=== PATIENT | male | born 1940 | race Caucasian/White ===

== ENCOUNTER 2016-04-11 16:06 | Inpatient (IN) | payer MEDICARE, OTHER ==
[2016-04-11] VITALS (11 sets, daily range): BP systolic 143–182; BP diastolic 59–88; PULSE 62–74; RESP 19–23; Ht 157.5 cm; Wt 63.2 kg
[~2016-04-11] VITALS: Ht 157.5 cm; Wt 63.2 kg
[2016-04-11] MEDS ORDERED: HEPARIN 1000 UNITS/ML 10 ML INJ IV STA (16:19)
[2016-04-11] MEDS ORDERED: ASPIRIN 325 MG TAB PO STA (16:19)
[2016-04-11] MEDS ORDERED: HEPARIN 25000 UNITS/250 ML 250 ML IV STA (16:19)
[2016-04-11] MEDS ORDERED: ONDANSETRON 4 MG INJ IV STA (16:23)
--- NOTE | 2016-04-11 16:33 | RADRPT ---
PROCEDURE: XR Chest. CLINICAL INDICATION: Chest pain TECHNIQUE: Chest AP portable. COMPARISON: No comparison available. FINDINGS: The mediastinal structures are unremarkable. The heart is normal in size and configuration. The pu lmonary vascularity is normal. The lung banda are unremarkable. No consolidation is identified. The pleural spaces are unremarkable. The axial skeleton is unremarkable. IMPRESSION: No active intrathoracic disease. RPTAT: HGDB .Raji Clifton MD, MD Date Time Electronically viewed and signed by .Raji Clifton MD, on 04/11/2016 16:32 .B/
[2016-04-11 16:43] LABS: HEMATOCRIT 45.5 % (42.0-52.0); HEMOGLOBIN 15.2 g/dl (14.0-18.0); MEAN CORPUSCULAR HEMOGLOBIN 28.6 pg (29.0-33.0); MEAN CORPUSCULAR HGB CONC 33.4 g/dl (32.0-37.0); MEAN CORPUSCULAR VOLUME 85.7 fl (82.0-101.0); MEAN PLATELET VOLUME 9.6 fl (7.4-10.4); PLATELET COUNT 202 10^3/UL (140-440); RED BLOOD COUNT 5.31 10^6/ul (4.70-6.10); RED CELL DISTRIBUTION WIDTH 14.4 % (11.5-14.5); UNCORRECTED WBC 9.3 10^3/ul (4.8-10.8); WHITE BLOOD COUNT 9.3 10^3/ul (4.8-10.8)
[2016-04-11] MEDS ORDERED: IODIXANOL LOCM 50 ML BTL ONE (16:49)
[2016-04-11] MEDS ORDERED: HEPARIN 1000 UNITS/ML 10 ML INJ ONE (16:49)
[2016-04-11] MEDS ORDERED: IODIXANOL LOCM 100 ML BTL ONE (16:49)
[2016-04-11] MEDS ORDERED: VERAPAMIL 5 MG INJ ONE (16:49)
[2016-04-11] MEDS ORDERED: MIDAZOLAM 1 MG/ML 2 ML INJ ONE (16:49)
[2016-04-11] MEDS ORDERED: FENTAnyl 50 MCG/ML VIAL ONE (16:49)
[2016-04-11] MEDS ORDERED: NITROGLYCERIN (IC) 100 MCG/ML INJ ONE (16:50)
[2016-04-11 16:51] LABS: CHLORIDE 104 mmol/L (97-110); POTASSIUM 4.1 mmol/L (3.5-5.1); SODIUM 145 mmol/L (135-144)
[2016-04-11 16:53] LABS: CONDITION 1; INR 0.93; LH ANALYZER COMMENTS 1; PARTIAL THROMBOPLASTIN TIME 31.5 Sec (25.0-35.0); PROTIME 12.5 Sec (12.2-14.2)
[2016-04-11 16:54] LABS: CREATININE 0.89 mg/dl (0.61-1.24)
[2016-04-11 16:55] LABS: ANION GAP 18 (8-16); BLOOD UREA NITROGEN 15 mg/dl (7-20); CARBON DIOXIDE 27 mmol/L (21-31); GLUCOSE 139 mg/dl (70-220)
--- NOTE | 2016-04-11 16:58 | CONS ---
Date/Time of Note Date/Time of Note DATE: 04/11/16 TIME: 16:54 Assessment/Plan Assessment/Plan Chief Complaint/Hosp Course Anterior STEMI: EKG with anterolateral ST elevations and reciprocal ST depressions inferiorly. To cath for likely intervention. -emergent cath -given ASA 325mg, heparin bolus -will give remainder of meds in lab Problems: Consultation Date/Type/Reason Admit Date/Time Date of Consultation: Apr 11, 2016 Type of Consultation: Cardiology Reason for Consultation STEMI Referring Provider: PATRICK AGUILLON of Present Illness 75 yo M with no known past medical history who presented with chest pain x 1 hour and was found to have an anterior STEMI. The patient is agreeable to urgent cardiac cath for evaluation, treatment. Social History Smoking Status: Never smoker Exam/Review of Systems Vital Signs Vitals Vital Signs Date Time Temp Pulse Resp B/P Pulse Ox O2 Delivery O2 Flow Rate FiO2 04/11/16 16:23 Nasal Cannula 2 04/11/16 16:11 97.6 71 18 198/92 100 Exam Constitutional: alert, oriented Psych: no complaints Head: atraumatic, normocephalic Neck: No jvd Respiratory: clear to auscultation, No crackles/rales Cardiovascular: nl pulses, regular rate and rhythm, No edema Gastrointestinal: non-tender, soft Neurological: nl mental status, nl speech Results Result Diagram: 04/11/16 1625 Results 24 hrs Laboratory Tests Test 04/11/16 16:25 Activated Partial Thromboplast Time 31.5 Anion Gap Pending Basophils # Pending Basophils % Pending Blood Morphology Comment Blood Urea Nitrogen Pending Calcium Level Pending Carbon Dioxide Level Pending Chloride Level 104 Creatinine Pending Eosinophils # Pending Eosinophils % Pending Glucose Level Pending Hematocrit 45.5 Hemoglobin 15.2 INR International Normalized Ratio 0.93 Lymphocytes # Pending Lymphocytes % Pending Mean Corpuscular Hemoglobin 28.6 L Mean Corpuscular Hemoglobin Concent 33.4 Mean Corpuscular Volume 85.7 Mean Platelet Volume 9.6 Monocytes # Pending Monocytes % Pending Neutrophils # Pending Neutrophils % Pending Nucleated Red Blood Cells # Pending Nucleated Red Blood Cells % Pending Platelet Count 202 Potassium Level 4.1 Prothrombin Time 12.5 Prothrombin Time Ratio 1.0 Red Blood Count 5.31 Red Cell Distribution Width 14.4 Sodium Level 145 H Troponin I Pending White Blood Count 9.3 KOSHKARYAN,BRANDIE Apr 11, 2016 16:57
[2016-04-11] MEDS ORDERED: SOD CHLORIDE 0.9% 500 ML ONE (17:16)
[2016-04-11] MEDS ORDERED: CLOPIDOGREL 300 MG TAB ONE (17:17)
[2016-04-11 17:23] LABS: TROPONIN-I < 0.012 ng/ml (0.00-0.12)
[2016-04-11] MEDS ORDERED: BIVALIRUDIN 250MG /NS 50 ML 50 ML IVPB ONE ×2 (17:27→17:58)
[2016-04-11 17:41] LABS: EOSINOPHILS # 1.7 10^3/ul (0.0-0.5); LYMPHOCYTES # 2.1 10^3/ul (0.8-2.9); MONOCYTE # 0.3 10^3/ul (0.3-0.9); NEUTROPHIL # 4.8 10^3/ul (1.6-7.5)
[2016-04-11 17:42] LABS: HYPOCHROMASIA 1+; PLATELET ESTIMATE PLT APPEAR ADEQUATE
[2016-04-11] MEDS ORDERED: ONDANSETRON 4 MG INJ IV PRN (18:30)
[2016-04-11] MEDS ORDERED: ACETAMINOPHEN 325 MG TAB PO PRN (18:30)
[2016-04-11] MEDS ORDERED: morphine 2 MG INJ IV PRN (18:30)
--- NOTE | 2016-04-11 18:43 | ERA ---
ER Documentation Chief Complaint Date/Time DATE: 04/11/16 TIME: 18:29 Chief Complaint CHEST PAIN, ONSET TODAY HPI This 75-year-old male walked into the emergency room for bilateral substernal chest pain and been present for one hour. Abrasions this Is a pressure-like. He does not feel short of breath but does have nausea. He also feels very shaky. There is no radiation of the pain and nothing makes it better or worse. He does not see physicians and is not sure if he has high cholesterol hypertension, he is pretty sure that he does not have diabetes. His never had any heart attacks prior to this that he knows of. ROS All systems reviewed and are negative except as per history of present illness. Medications Home Meds No Active Prescriptions or Reported Meds Allergies Allergies: Coded Allergies: No Known Allergy (Unverified , 04/11/16) PMhx/Soc Medical and Surgical Hx: pt denies Medical Hx, pt denies Surgical Hx Hx Alcohol Use: No Hx Substance Use: No Hx Tobacco Use: No Smoking Status: Never smoker Physical Exam Vitals Vital Signs Date Time Temp Pulse Resp B/P Pulse Ox O2 Delivery O2 Flow Rate FiO2 04/11/16 16:23 Nasal Cannula 2 04/11/16 16:11 97.6 71 18 198/92 100 Physical Exam Const: [] Mild distress, mild tremors Head: Atraumatic Eyes: Normal Conjunctiva, EOMI, PERRLA ENT: Normal External Ears, Nose and Mouth. Neck: Full range of motion..~ No meningismus. Resp: Clear to auscultation bilaterally Cardio: Regular rate and rhythm, no murmurs Abd: Soft, non tender, non distended. Normal bowel sounds Skin: No petechiae or rashes Back: No midline or flank tenderness Ext: No cyanosis, or edema Neur: Awake and alert and oriented 3, no focal deficits Psych: Normal Mood and Affect Result Diagram: 04/11/16 1625 04/11/16 1625 Results 24 hrs Laboratory Tests Test 04/11/16 16:25 Activated Partial Thromboplast Time 31.5Sec Anion Gap 18 Basophils # 10^3/ul Basophils % % Blood Morphology Comment Blood Urea Nitrogen 15mg/dl Calcium Level 9.0mg/dl Carbon Dioxide Level 27mmol/L Chloride Level 104mmol/L Creatinine 0.89mg/dl Eosinophils # 1.710^3/ul Eosinophils % 18.0% Glucose Level 139mg/dl Hematocrit 45.5% Hemoglobin 15.2g/dl Hypochromasia 1+ INR International Normalized Ratio 0.93 Lymphocytes # 2.110^3/ul Lymphocytes % 23.0% Mean Corpuscular Hemoglobin 28.6pg Mean Corpuscular Hemoglobin Concent 33.4g/dl Mean Corpuscular Volume 85.7fl Mean Platelet Volume 9.6fl Monocytes # 0.310^3/ul Monocytes % 3.0% Neutrophils # 4.810^3/ul Neutrophils % 52.0% Nucleated Red Blood Cells # 10^3/ul Nucleated Red Blood Cells % 0.0/100WBC Platelet Count 28493^3/UL Platelet Estimate PLT APPEAR ADEQUATE Potassium Level 4.1mmol/L Prothrombin Time 12.5Sec Prothrombin Time Ratio 1.0 Red Blood Count 5.3110^6/ul Red Cell Distribution Width 14.4% Sodium Level 145mmol/L Troponin I < 0.012ng/ml White Blood Count 9.310^3/ul Current Medications Medications (Trade) Dose Ordered Sig/Katiana Route PRN Reason Start Time Stop Time Status Last Admin Dose Admin Aspirin (Aspirin) 325 mg ONCE STAT PO 04/11/16 16:19 04/11/16 16:21 DC 04/11/16 16:32 Heparin Sodium (Porcine) 4000 unit 4,000 unit ONCE STAT IV 04/11/16 16:19 04/11/16 16:21 DC 04/11/16 16:34 Heparin Sodium (Porcine) (Heparin 67871 Units/250 ml) 250 ml @ 0 mls/hr ONCE STAT IV 04/11/16 16:19 04/11/16 16:21 DC 04/11/16 16:35 Ondansetron HCl (Zofran Inj) 4 mg ONCE STAT IV 04/11/16 16:23 04/11/16 16:24 DC 04/11/16 16:32 Heparin Sodium (Porcine) (Heparin (1000 Units/ml)) 10,000 unit STK-MED ONCE .ROUTE 04/11/16 16:49 04/11/16 16:50 DC Iodixanol (Visipaque Locm) 50 ml STK-MED ONCE .ROUTE 04/11/16 16:49 04/11/16 16:50 DC Iodixanol 100 ml 100 ml STK-MED ONCE .ROUTE 04/11/16 16:49 04/11/16 16:50 DC Heparin Sodium/ Sodium Chloride (Heparin 1000 Units/NS (A-Line)) 1,500 ml @ ud STK-MED ONCE .ROUTE 04/11/16 16:49 04/11/16 16:50 DC Midazolam HCl (Versed) 2 mg STK-MED ONCE .ROUTE 04/11/16 16:49 04/11/16 16:50 DC Fentanyl (Sublimaze) 100 mcg STK-MED ONCE .ROUTE 04/11/16 16:49 04/11/16 16:50 DC Verapamil HCl (Verapamil) 5 mg STK-MED ONCE .ROUTE 04/11/16 16:49 04/11/16 16:50 DC Nitroglycerin (Nitroglycerin (Intracoronary)) 1,000 mcg STK-MED ONCE .ROUTE 04/11/16 16:50 04/11/16 16:51 DC Procedures/MDM 75-year-old male with acute ST elevation myocardial infarction. EKG. Patient likely has hypertension as well as at least hypertensive in the emergency room. Code STEMI was immediately called and patient was given aspirin as well as 4000 units of heparin and heparin drip was started. who called back quickly and said that he would come the emergency room. He was at the patient's bedside prior to cath team arrival. 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 He did not have any increase in pain and she appeared comfortable. I spoke with Dr. Jolly who will be admitted the patient to the intensive care unit following catheterization. EKG interpretation: Normal sinus rhythm, indeterminate axis, ST elevations in aVL, lead v2, significant ST depressions in inferior leads and V6. Acute STEMI map mounter interpretation: Normal sinus rhythm without significant ST elevations Chest x-ray interpretation: No acute process, no widened mediastinum no pulmonary edema, no infiltrate, no fractures Critical care time 36 minutes: This includes management of acute STEMI, his of aspirin, heparin bolus, heparin drip, discussion with chisel grinder, discussion with patient, translation of Procedures [place]an for the patient, admitting doctor, greater than 15 minutes spent patient's bedside, chart review. This does not include any billable procedures Departure Diagnosis: Primary Impression: STEMI (ST elevation myocardial infarction) Additional Impression: Hypertension Condition: Serious PATRICK AGUILLON DO Apr 11, 2016 18:43
--- NOTE | 2016-04-11 18:44 | OPR ---
Date/Time of Note Date/Time of Note DATE: 04/11/16 TIME: 18:29 Operative Report Free Text/Dictation Procedure Date: 04/11/2016 Procedures Performed: 1)Selective left and right coronary angiography. 2)Balloon angioplasty and stenting of the mid LAD with a Promus 2.25 x 28 stent. Pre-operative Diagnosis:STEMI Post-operative Diagnosis:STEMI Indications: 75 yo M who presented with chest pain and was found to have an anterior STEMI. Description of Procedure: After informed consent, the patient was brought to the cardiac catheterization lab. The procedure site was prepped and draped in usual manner. The patient was premedicated with versed 1mg and fentanyl 50 mcg. 10mL lidocaine was injected into the right groin. Next using the Seldinger technique, the 6 thai sheath was inserted into the right femoral artery. Next using the JR4, selective angiography of the right coronary artery was obtained. The 6 thai JL4 guide catheter was used to obtain selective left coronary angiography. The decision was made to proceed with PCI of the LAD. Even though the vessel was no longer occluded and otherwise the patient may have been considered for a CABG, it was thought that the likelihood of reocclusion of the LAD was very high and the best option was to proceed with PCI. After appropriate anticoagulation and antiplatelets were given, the BMW angioplasty wire was advanced into the diagonal artery and another past the LAD lesion. Next the 2.0 X 12 balloon was used to dilate the lesion times 5 at a maximum of 12 jesus alberto. As the stent could not be advanced, the Mailman wire was used as a shlomo wire. Next over the BMW wire, the Promus 2.25 x 28 stent was advanced to the lesion and deployed at 12 jesus alberto after the Mailman was removed. Next the diagnoal wire was removed and the stent was post dilated with the 2.5 X 12 noncompliant balloon times 4 at a maximum of 14 jesus alberto. Final angiography revealed STEFANIE 3 flow, no edge dissection, and appropriate stent expansion. There was a stepdown noted distally but no dissection (this area was not post dilated). Next a pigtail was advanced into the LV and hemodynamics obtained. An LV gram was not done. Selective right femoral angiography revealed a very high bifurcation so closure device was not used. Next all equipment was removed. Findings: Anatomy/Hemodynamics: Heavily calcified vessels Left main: Normal LAD: mid 99% after the diagonal. Initial angiography revealed STEFANIE 1 flow but then STEFANIE 2 flow Diagonal:mid 50% Circumflex:prox to mid long 90% disease, distal diffuse disease Obtuse marginal 1: prox 70-80% Obtuse marginal 2: very small diffusely diseased vessel RCA:mid long up to 90% disease, distal 50% PDA:normal PLV:normal LV angiography:not done No LV-Ao pullback gradient Ao:119/54 LVEDP: 21 Contrast used:240 Medications used: Versed 1mg Fentanyl 50mcg ASA 325mg given in ED plavix 600mg angiomax bolus and drip NTG 200mcg IC x 2 verapamil 100mcg IC x 2 Equipment used: 6 thai JL4 guide BMW and Mailman angioplasty wires 2 x 12 balloon Promus 2.25 x 28 drug eluting stent 2.5 x 12 noncompliant balloon Assessment: Anterior STEMI: s/p PCI of mid LAD. CAD: Has residual disease in the RCA and Cx which need further intervention Plan: -observe in ICU -angiomax for 4 hours post procedure (~10pm) then d/c sheath after ~2 hours -will need to intervene on at least the RCA and possibly the Cx as well on this admission -ASA 81mg daily -plavix 75mg -lipitor 80mg -metoprolol 25mg BID -echo BRANDIE RAWLS Apr 11, 2016 18:43
[2016-04-11] MEDS: ATORVASTATIN 80 MG TAB PO SCH (21:29)
[2016-04-11] MEDS: METOPROLOL 25 MG TAB PO SCH (21:29)
[2016-04-12] VITALS (24 sets, daily range): BP systolic 119–170; BP diastolic 54–94; PULSE 56–81; RESP 12–24
[2016-04-12] MEDS ORDERED: ATROPINE 1 MG/10 ML SYRINGE ONE (00:46)
[2016-04-12 06:47] LABS: POTASSIUM 4.1 mmol/L (3.5-5.1)
[2016-04-12 06:50] LABS: CREATININE 0.68 mg/dl (0.61-1.24)
[2016-04-12 06:51] LABS: CALCIUM 8.1 mg/dl (8.4-10.2)
[2016-04-12 06:54] LABS: BASOPHILS % 0.3 % (0.0-2.0); EOSINOPHILS # 0.2 10^3/ul (0.0-0.5); HEMATOCRIT 40.2 % (42.0-52.0); HEMOGLOBIN 13.5 g/dl (14.0-18.0); LYMPHOCYTES # 0.9 10^3/ul (0.8-2.9); LYMPHOCYTES % 11.1 % (15.0-51.0); MEAN CORPUSCULAR HEMOGLOBIN 28.6 pg (29.0-33.0); MEAN CORPUSCULAR HGB CONC 33.6 g/dl (32.0-37.0); MEAN CORPUSCULAR VOLUME 85.1 fl (82.0-101.0); MEAN PLATELET VOLUME 9.8 fl (7.4-10.4); MONOCYTE # 0.7 10^3/ul (0.3-0.9); MONOCYTES % 8.2 % (0.0-11.0); NEUTROPHIL # 6.2 10^3/ul (1.6-7.5); NEUTROPHILS % 77.4 % (39.0-77.0); PLATELET COUNT 171 10^3/UL (140-440); RED BLOOD COUNT 4.73 10^6/ul (4.70-6.10); UNCORRECTED WBC 8.1 10^3/ul (4.8-10.8); WHITE BLOOD COUNT 8.1 10^3/ul (4.8-10.8)
[2016-04-12 06:58] LABS: CONDITION 1
[2016-04-12 07:00] LABS: CK-MB 71.9 ng/ml (0.0-2.4)
[2016-04-12 08:00] LABS: CHOL/HDL RATIO 3.9 RATIO
[2016-04-12] MEDS: ASPIRIN 81 MG TAB PO SCH (08:06)
[2016-04-12] MEDS: METOPROLOL 25 MG TAB PO SCH (08:06)
[2016-04-12] MEDS: CLOPIDOGREL 75 MG TAB PO SCH (08:06)
--- NOTE | 2016-04-12 08:18 | CONS ---
Date/Time of Note Date/Time of Note DATE: 04/12/16 TIME: 08:13 Assessment/Plan Assessment/Plan Chief Complaint/Hosp Course Anterior STEMI: s/p PCI of LAD. Has residual RCA and Cx/OM lesions which need intervention. -ASA 81mg -plavix 75mg -will switch to coreg as likely LV dysfunction -lipitor -will try to arrange for cath tomorrow -echo Problems: Consultation Date/Type/Reason Admit Date/Time Apr 11, 2016 at 19:30 Initial Consult Date 04/11/16 Type of Consultation: Cardiology Referring Provider: PATRICK AGUILLON DO 24 HR Interval Summary Free Text/Dictation Some PVCs and short runs of NSVT overnight. No chest pain. No SOB. Thankful for procedure. Lives alone in the , family is in [facility]. Exam/Review of Systems Vital Signs Vitals Vital Signs Date Time Temp Pulse Resp B/P Pulse Ox O2 Delivery O2 Flow Rate FiO2 04/12/16 07:00 56 20 128/55 93 Room Air 04/12/16 06:00 1.0 04/12/16 04:00 98.9 Intake and Output 04/11/16 04/11/16 04/12/16 15:00 23:00 07:00 Intake Total 490 ml 0 ml Output Total 1475 ml 300 ml Balance -985 ml -300 ml Exam Constitutional: alert, oriented Psych: no complaints Head: atraumatic, normocephalic Neck: jvd (7cm) Respiratory: No clear to auscultation (mild crackles ) Cardiovascular: nl pulses, regular rate and rhythm, No systolic murmur Gastrointestinal: soft Neurological: nl mental status, nl speech Results Result Diagram: 04/12/16 0529 04/12/16 0529 Results 24 hrs Laboratory Tests Test 04/11/16 16:25 04/11/16 22:10 04/12/16 05:29 Activated Partial Thromboplast Time 31.5 Anion Gap 18 H 14 Basophils # 0.0 Basophils % 0.3 Blood Morphology Comment Blood Urea Nitrogen 15 11 Calcium Level 9.0 8.1 L Carbon Dioxide Level 27 24 Chloride Level 104 106 Creatinine 0.89 0.68 Eosinophils # 1.7 H 0.2 Eosinophils % 18.0 H 3.0 Glucose Level 139 160 Hematocrit 45.5 40.2 L Hemoglobin 15.2 13.5 L Hypochromasia 1+ INR International Normalized Ratio 0.93 Lymphocytes # 2.1 0.9 Lymphocytes % 23.0 11.1 L Mean Corpuscular Hemoglobin 28.6 L 28.6 L Mean Corpuscular Hemoglobin Concent 33.4 33.6 Mean Corpuscular Volume 85.7 85.1 Mean Platelet Volume 9.6 9.8 Monocytes # 0.3 0.7 Monocytes % 3.0 8.2 Neutrophils # 4.8 6.2 Neutrophils % 52.0 77.4 H Nucleated Red Blood Cells # 0.0 Nucleated Red Blood Cells % 0.0 0.0 Platelet Count 202 171 Platelet Estimate PLT APPEAR ADEQUATE Potassium Level 4.1 4.1 Prothrombin Time 12.5 Prothrombin Time Ratio 1.0 Red Blood Count 5.31 4.73 Red Cell Distribution Width 14.4 14.0 Sodium Level 145 H 140 Troponin I < 0.012 156.000 *H 168.000 *H White Blood Count 9.3 8.1 Creatine Kinase 2423 H Creatine Kinase Index 3.0 Creatinine Kinase MB (Mass) 142.00 H 71.90 H Cholesterol Level 139 Cholesterol/HDL Ratio 3.9 HDL Cholesterol 35 Hemoglobin A1c 6.9 H LDL Cholesterol, Calculated 74 Triglycerides Level 152 H Medications Medications Current Medications Acetaminophen (Tylenol Tab) 650 mg Q4H PRN PO NON-CARDIAC PAIN LEVEL (1-3); Start 04/11/16 at 18:30 Morphine Sulfate (morphine) 2 mg Q2H PRN IV FOR NON CARDIAC PAIN (4-10) Last administered on 04/12/16 00:51; Admin Dose 2 MG; Start 04/11/16 at 18:30 Ondansetron HCl (Zofran Inj) 4 mg Q4H PRN IV NAUSEA AND/OR VOMITING; Start 04/11 at 18:30 Aspirin (Aspirin) 81 mg DAILY PO Last administered on 04/12/16 08:06; Admin Dose 81 MG; Start 04/12/16 at 09:00 Clopidogrel Bisulfate (plaVIX) 75 mg DAILY PO Last administered on 04/12/16 08: 06; Admin Dose 75 MG; Start 04/12/16 at 09:00 Atorvastatin Calcium (Lipitor) 80 mg HS PO Last administered on 04/11/16 21:29 ; Admin Dose 80 MG; Start 04/11/16 at 21:00 Metoprolol Tartrate (Lopressor) 25 mg BID PO Last administered on 04/12/16 08: 06; Admin Dose 25 MG; Start 04/11/16 at 21:00 BRANDIE RAWLS Apr 12, 2016 08:17
--- NOTE | 2016-04-12 08:50 | HP ---
DATE OF ADMISSION: 04/11/2016 TIME: 11 p.m. CHIEF COMPLAINT: Chest pain. HISTORY OF PRESENT ILLNESS: The patient is a 75-year-old male with no medical history. The patient presented with chest pain that began around 4 p.m. on 04/11/2016. The patient presented to the ED where he was found to have anterior STEMI. The patient has no cardiac history in the past. The pat ient was taken to record label internship with Dr. Corral where he had a selective left and right coronary da ography. The patient had balloon angioplasty and stenting of the mid LAD. The patient was started on cardiac medications. He currently has no complaints except some minor chest pain, but states christen t he feels significantly better at this time. PAST MEDICAL HISTORY: Denies. PAST SURGICAL HISTORY: Denies. HOME MEDICATIONS: None reported. ALLERGIES: NO KNOWN DRUG ALLERGIES. FAMILY HISTORY: Denies any history of any cardiac issues or diabetes. SOCIAL HISTORY: Denies smoking, alcohol abuse, drugs. REVIEW OF SYSTEMS: A 12-point review of systems negative except that as discussed in HPI. PHYSICAL EXAMINATION: VITAL SIGNS: Temperature is 98.9, pulse 75, respiratory rate is 24, BP is 160/94, saturation 95% on 1 L. GENERAL: No acute distress, alert, and oriented. HEENT: Normocephalic, atraumatic. LUNGS: Clear to auscultation. CARDIOVASCULAR: Regular rate and rhythm. ABDOMEN: Nondistended, nontender, soft. EXTREMITIES: No clubbing, cyanosis, or edema. LABORATORIES: White count 9.3, hemoglobin is 15.2, platelets of 202. Chemistry: Sodium is 145, an ion gap is 18. Initial troponin was 0.012. 156. INR is 0.93. DIAGNOSTICS: Chest x-ray showed no active intrathoracic disease. EKG showed an anterior STEMI. ASSESSMENT AND PLAN: 1. ST-elevation myocardial infarction status post balloon angioplasty and stenting of the mid LAD. Continue cardiac meds. Follow up with cardiology recommendations. Possibly downgrade to telemetry tomorrow. Will follow up on cardiology recommendations. 2. Prophylaxis. SCDs. Dictated By: HANNAH HUA MD BS/NTS Conf#: [id number] DID#: [id number]
--- NOTE | 2016-04-12 11:58 | PN ---
Date/Time of Note Date/Time of Note DATE: 04/12/16 TIME: 11:54 Assessment/Plan VTE Prophylaxis VTE Prophylaxis Intervention: other Lines/Catheters IV Catheter Type (from [facility]): Peripheral IV Urinary Cath still in place: No Assessment/Plan Chief Complaint/Hosp Course ASSESSMENT AND PLAN: 75 M with STEMI 1. ST-elevation myocardial infarction - status post balloon angioplasty and stenting of the mid LAD. - Continue cardiac meds, lipitor Follow up with cardiology recommendations. Possibly downgrade to telemetry tomorrow. - follow up on cardiology recommendations - plan for possible further stenting on Lcx and RCA in 24 hrs per CV - check A1c 2. high chol - statin 3. Prophylaxis. H2 flavia, SCDs, ASA + plavix. Critical care time spent with pt care today = 40 min. Problems: Subjective 24 Hr Interval Summary Free Text/Dictation Pt denies cp, had LHC with stenting to LAD yesterday. No acute events overnight. Exam/Review of Systems Vital Signs Vitals Vital Signs Date Time Temp Pulse Resp B/P Pulse Ox O2 Delivery O2 Flow Rate FiO2 04/12/16 11:00 66 19 147/77 95 Room Air 04/12/16 08:00 99.1 04/12/16 06:00 1.0 Intake and Output 04/11/16 04/11/16 04/12/16 15:00 23:00 07:00 Intake Total 490 ml 240 ml Output Total 1475 ml 300 ml Balance -985 ml -60 ml Exam GENERAL: No acute distress, alert, and oriented. HEENT: Normocephalic, atraumatic. LUNGS: Clear to auscultation. CARDIOVASCULAR: Regular rate and rhythm. ABDOMEN: Nondistended, nontender, soft. EXTREMITIES: No clubbing, cyanosis, or edema. Results Result Diagram: 04/12/16 0529 04/12/16 0529 Results 24 hrs Laboratory Tests Test 04/11/16 16:25 04/11/16 22:10 04/12/16 05:29 Activated Partial Thromboplast Time 31.5 Anion Gap 18 H 14 Basophils # 0.0 Basophils % 0.3 Blood Morphology Comment Blood Urea Nitrogen 15 11 Calcium Level 9.0 8.1 L Carbon Dioxide Level 27 24 Chloride Level 104 106 Creatinine 0.89 0.68 Eosinophils # 1.7 H 0.2 Eosinophils % 18.0 H 3.0 Glucose Level 139 160 Hematocrit 45.5 40.2 L Hemoglobin 15.2 13.5 L Hypochromasia 1+ INR International Normalized Ratio 0.93 Lymphocytes # 2.1 0.9 Lymphocytes % 23.0 11.1 L Mean Corpuscular Hemoglobin 28.6 L 28.6 L Mean Corpuscular Hemoglobin Concent 33.4 33.6 Mean Corpuscular Volume 85.7 85.1 Mean Platelet Volume 9.6 9.8 Monocytes # 0.3 0.7 Monocytes % 3.0 8.2 Neutrophils # 4.8 6.2 Neutrophils % 52.0 77.4 H Nucleated Red Blood Cells # 0.0 Nucleated Red Blood Cells % 0.0 0.0 Platelet Count 202 171 Platelet Estimate PLT APPEAR ADEQUATE Potassium Level 4.1 4.1 Prothrombin Time 12.5 Prothrombin Time Ratio 1.0 Red Blood Count 5.31 4.73 Red Cell Distribution Width 14.4 14.0 Sodium Level 145 H 140 Troponin I < 0.012 156.000 *H 168.000 *H White Blood Count 9.3 8.1 Creatine Kinase 2423 H Creatine Kinase Index 3.0 Creatinine Kinase MB (Mass) 142.00 H 71.90 H Cholesterol Level 139 Cholesterol/HDL Ratio 3.9 HDL Cholesterol 35 Hemoglobin A1c 6.9 H LDL Cholesterol, Calculated 74 Triglycerides Level 152 H Medications Medications Current Medications Acetaminophen (Tylenol Tab) 650 mg Q4H PRN PO NON-CARDIAC PAIN LEVEL (1-3); Start 04/11/16 at 18:30 Morphine Sulfate (morphine) 2 mg Q2H PRN IV FOR NON CARDIAC PAIN (4-10) Last administered on 04/12/16 00:51; Admin Dose 2 MG; Start 04/11/16 at 18:30 Ondansetron HCl (Zofran Inj) 4 mg Q4H PRN IV NAUSEA AND/OR VOMITING; Start 04/11 at 18:30 Aspirin (Aspirin) 81 mg DAILY PO Last administered on 04/12/16 08:06; Admin Dose 81 MG; Start 04/12/16 at 09:00 Clopidogrel Bisulfate (plaVIX) 75 mg DAILY PO Last administered on 04/12/16 08: 06; Admin Dose 75 MG; Start 04/12/16 at 09:00 Atorvastatin Calcium (Lipitor) 80 mg HS PO Last administered on 04/11/16 21:29 ; Admin Dose 80 MG; Start 04/11/16 at 21:00 Carvedilol (Coreg) 6.25 mg BID PO Last administered on 04/12/16 09:49; Admin Dose 6.25 MG; Start 04/12/16 at 09:00 KEISHA VILLAREAL Apr 12, 2016 11:58
[2016-04-12] MEDS: FAMOTIDINE 20 MG TAB PO SCH (12:05)
--- NOTE | 2016-04-12 13:17 | RADRPT ---
Echocardiogram Report Patient Name: ELODIA SAINZ Gender: Male Date: 1940 Study Date: 12-Apr-2016 Primer Inserting Machine Adjuster: Jaylon Ureña RDCS Location: 106 Ref. Physician: BRANDIE CORRAL Quality: Adequate Procedures: Transthoracic echocardiogram with complete 2D, M-Mode, and doppler examination. Indications: STEMI. 2D/M Mode Doppler Measurement Value Normal Ranges Measurement Value Normal Ranges LVIDd 2D 5.2 3.5 - 5.6 cm AV Peak Trevor 1.3 m/sec LVIDs 2D 2.5 2.1 - 4.1 cm AV Peak PG 6.7 mmHg LVPWd 2D 0.9 0.6 - 1.1 cm AI Peak PG 27.7 mmHg IVSd 2D 0.8 0.6 - 1.1 cm AI Peak Trevor 2.6 m/sec AoR Diam 2D 3.0 2.0 - 3.7 cm AI PHT 452.2 msec EDV 2D 130.5 cm3 LVOT Peak Trevor 0.9 m/sec ESV 2D 16.0 cm3 LVOT Peak PG 3.6 mmHg LA Dimen 2D 2.8 2.3 - 4.0 cm MV E Peak Trevor 0.6 m/sec MV A Peak Trevor 1.4 m/sec MV E/A 0.4 MV Decel Time 331 msec MV Decel [place] 2 MV E/A 0.4 TR Peak Trevor 2.2 m/sec TR Peak PG 20.0 mmHg RVSP 23.0 mmHg Findings Left Ventricle: Normal left ventricular cavity size. Mild concentric left ventricular hypertrophy. Mild left ventricular systolic dysfunction. Ejection fraction is visually estimated at 4045 %. Tissue Doppler/Mitral Doppler indices are consistent with impaired relaxation (Stage I diastolic dysfunction). Resting Segmental Wall Motion Analysis: Akinesis of the mid to distal septum and apex. Hypokinesis of the inferior wall. Right Ventricle: Normal right ventricular size. Normal right ventricular systolic function. Left Atrium: There is mild enlargement of left atrium. Right Atrium: The right atrium is normal in size. Mitral Valve: Mitral valve leaflets appear mildly thickened. Mild mitral annular calcification. Trace mitral regurgitation. Aortic Valve: No hemodynamically significant aortic stenosis by doppler. Aortic cusps appear mildly calcified. Mild aortic valve regurgitation. Tricuspid Valve: Normal appearance of the tricuspid valve. Unable to obtain RVSP due to minimal presence of tricuspid regurgitation. Estimated peak PA systolic pressure mmHg. There is trace tricuspid regurgitation. Pericardium: Normal pericardium with no significant pericardial effusion. Aorta: Normal aortic root. IVC: Normal size and normal respiratory collapse consistent with normal right atrial pressure. Conclusions 1.Normal left ventricular cavity size. Mild concentric left ventricular hypertrophy. Mild left ventricular systolic dysfunction. Ejection fraction is visually estimated at 40-45 %. Tissue Doppler/Mitral Doppler indices are consistent with impaired relaxation (Stage I diastolic dysfunction). Akinesis of the mid to distal septum and apex. Hypokinesis of the inferior wall. 2.Mild aortic valve regurgitation. 3.PA pressure could not be estimated. RA pressure is 3 mmHg. Electronically Signed By: Brandie Corral 12-Apr-2016 13:16:51 -0800 Patient Name: ELODIA SAINZ Study Date: 12-Apr-2016 [id number]
--- NOTE | 2016-04-12 14:53 | RADRPT ---
Vent Rate: 57 bpm RR Interval: 0 msec NV Interval: 204 msec QRS Duration: 84 msec QT Interval: 468 msec QTC Interval: 455 msec P-R-T [place]: 49 - -77 - 0 degrees Sinus bradycardia with occasional premature ventricular complexes Left axis deviation Anteroseptal infarct , possibly acute T wave abnormality, consider inferolateral ischemia ACUTE MT Abnormal ECG Electronically Signed By: Sander Corral [id number]
[2016-04-12] MEDS ORDERED: GLUCAGON 1 MG INJ IM PRN (15:00)
[2016-04-12] MEDS ORDERED: GLUCOSE GEL 15 GRAM TUBE PO PRN ×2 (15:00)
[2016-04-12] MEDS ORDERED: DEXTROSE 50% 50 ML SYRINGE IV PRN ×2 (15:00)
[2016-04-12] MEDS ORDERED: GLUCOSE GEL 15 GRAM TUBE BUCCAL PRN (15:00)
[2016-04-12] MEDS: INSULIN ASPART [NOVOLOG] 3 ML PEN SC SCH ×2 (17:18→21:19)
[2016-04-12] MEDS ORDERED: hydrALAzine 20 MG INJ IV PRN (18:30)
[2016-04-12] MEDS: ATORVASTATIN 80 MG TAB PO SCH (21:11)
[2016-04-13] VITALS (35 sets, daily range): BP systolic 108–159; BP diastolic 51–82; PULSE 56–85; RESP 12–27
[2016-04-13] MEDS: ACCUCHECK XX SCH (02:14)
[2016-04-13 04:58] LABS: POTASSIUM 3.9 mmol/L (3.5-5.1)
[2016-04-13 05:00] LABS: BASOPHILS % 0.1 % (0.0-2.0); EOSINOPHILS # 0.3 10^3/ul (0.0-0.5); EOSINOPHILS % 4.3 % (0.0-7.0); HEMATOCRIT 41.2 % (42.0-52.0); HEMOGLOBIN 13.8 g/dl (14.0-18.0); INR 1.04; LYMPHOCYTES # 1.2 10^3/ul (0.8-2.9); LYMPHOCYTES % 15.4 % (15.0-51.0); MEAN CORPUSCULAR HEMOGLOBIN 28.6 pg (29.0-33.0); MEAN CORPUSCULAR HGB CONC 33.5 g/dl (32.0-37.0); MEAN CORPUSCULAR VOLUME 85.2 fl (82.0-101.0); MONOCYTES % 13.2 % (0.0-11.0); NEUTROPHIL # 5.1 10^3/ul (1.6-7.5); PLATELET COUNT 160 10^3/UL (140-440); PROTIME 13.6 Sec (12.2-14.2); PT RATIO 1.1; RED BLOOD COUNT 4.83 10^6/ul (4.70-6.10); RED CELL DISTRIBUTION WIDTH 13.3 % (11.5-14.5); UNCORRECTED WBC 7.6 10^3/ul (4.8-10.8); WHITE BLOOD COUNT 7.6 10^3/ul (4.8-10.8)
[2016-04-13 05:01] LABS: CALCIUM 8.4 mg/dl (8.4-10.2); CREATININE 0.7 mg/dl (0.61-1.24); PARTIAL THROMBOPLASTIN TIME 30.2 Sec (25.0-35.0)
[2016-04-13 05:02] LABS: CHOL/HDL RATIO 3.7 RATIO
[2016-04-13 05:29] LABS: CONDITION 1
[2016-04-13] MEDS ORDERED: HEPARIN 1000 UNITS/ML 10 ML INJ ONE (07:11)
[2016-04-13] MEDS ORDERED: LIDOCAINE 1% (MDV) 20 ML INJ ONE (07:11)
[2016-04-13] MEDS ORDERED: NITROGLYCERIN (IC) 100 MCG/ML INJ ONE (07:12)
[2016-04-13] MEDS ORDERED: IODIXANOL LOCM 100 ML BTL ONE (07:12)
[2016-04-13] MEDS ORDERED: VERAPAMIL 5 MG INJ ONE (07:12)
[2016-04-13] MEDS ORDERED: MIDAZOLAM 1 MG/ML 2 ML INJ ONE (07:13)
[2016-04-13] MEDS ORDERED: FENTAnyl 50 MCG/ML VIAL ONE (07:14)
[2016-04-13] MEDS ORDERED: IOHEXOL 350MG/ML 50 ML BTL ONE (07:48)
[2016-04-13] MEDS ORDERED: BIVALIRUDIN 250MG /NS 50 ML 50 ML IVPB ONE (07:48)
[2016-04-13] MEDS ORDERED: CLOPIDOGREL 300 MG TAB ONE (07:49)
[2016-04-13] MEDS: CLOPIDOGREL 75 MG TAB PO SCH (09:00)
--- NOTE | 2016-04-13 09:13 | CONS ---
Date/Time of Note Date/Time of Note DATE: 04/13/16 TIME: 09:11 Assessment/Plan Assessment/Plan Chief Complaint/Hosp Course Anterior STEMI: s/p PCI of LAD. Has residual RCA and Cx/OM lesions. Plan for PCI of RCA today and Cx at a future time. Ischemic Cardiomyopathy: EF 40-45%. Compensated. -ASA 81mg -plavix 75mg -coreg -lipitor -PCI RCA today Problems: Consultation Date/Type/Reason Admit Date/Time Apr 11, 2016 at 19:30 Initial Consult Date 04/11/16 Type of Consultation: Cardiology Referring Provider: PATRICK AGUILLON DO 24 HR Interval Summary Free Text/Dictation No o/n events. No further chest pain. Exam/Review of Systems Vital Signs Vitals Vital Signs Date Time Temp Pulse Resp B/P Pulse Ox O2 Delivery O2 Flow Rate FiO2 04/13/16 06:00 66 15 117/71 96 Room Air 04/13/16 04:00 98.6 04/12/16 06:00 1.0 Intake and Output 04/12/16 04/12/16 04/13/16 15:00 23:00 07:00 Intake Total 240 ml 820 ml 0 ml Output Total 300 ml 750 ml 0 ml Balance -60 ml 70 ml 0 ml Exam Constitutional: alert, oriented Psych: no complaints Head: normocephalic Neck: No jvd Respiratory: clear to auscultation Cardiovascular: regular rate and rhythm Gastrointestinal: non-tender, soft Neurological: nl mental status, nl speech Results Result Diagram: 04/13/16 0409 04/13/16 0409 Results 24 hrs Laboratory Tests Test 04/12/16 17:16 04/12/16 21:14 04/13/16 02:11 04/13/16 04:09 Bedside Glucose 199 224 H 153 Activated Partial Thromboplast Time 30.2 Anion Gap 12 Basophils # 0.0 Basophils % 0.1 Blood Morphology Comment Blood Urea Nitrogen 12 Calcium Level 8.4 Carbon Dioxide Level 26 Chloride Level 106 Cholesterol Level 126 Cholesterol/HDL Ratio 3.7 Creatinine 0.70 Eosinophils # 0.3 Eosinophils % 4.3 Glucose Level 147 HDL Cholesterol 34 Hematocrit 41.2 L Hemoglobin 13.8 L INR International Normalized Ratio 1.04 LDL Cholesterol, Calculated 75 Lymphocytes # 1.2 Lymphocytes % 15.4 Mean Corpuscular Hemoglobin 28.6 L Mean Corpuscular Hemoglobin Concent 33.5 Mean Corpuscular Volume 85.2 Mean Platelet Volume 10.0 Monocytes # 1.0 H Monocytes % 13.2 H Neutrophils # 5.1 Neutrophils % 67.0 Nucleated Red Blood Cells # 0.0 Nucleated Red Blood Cells % 0.0 Platelet Count 160 Potassium Level 3.9 Prothrombin Time 13.6 Prothrombin Time Ratio 1.1 Red Blood Count 4.83 Red Cell Distribution Width 13.3 Sodium Level 140 Triglycerides Level 84 White Blood Count 7.6 Medications Medications Current Medications Acetaminophen (Tylenol Tab) 650 mg Q4H PRN PO NON-CARDIAC PAIN LEVEL (1-3); Start 04/11/16 at 18:30 Morphine Sulfate (morphine) 2 mg Q2H PRN IV FOR NON CARDIAC PAIN (4-10) Last administered on 04/12/16 00:51; Admin Dose 2 MG; Start 04/11/16 at 18:30 Ondansetron HCl (Zofran Inj) 4 mg Q4H PRN IV NAUSEA AND/OR VOMITING; Start 04/11 at 18:30 Aspirin (Aspirin) 81 mg DAILY PO Last administered on 04/12/16 08:06; Admin Dose 81 MG; Start 04/12/16 at 09:00 Clopidogrel Bisulfate (plaVIX) 75 mg DAILY PO Last administered on 04/12/16 08: 06; Admin Dose 75 MG; Start 04/12/16 at 09:00 Atorvastatin Calcium (Lipitor) 80 mg HS PO Last administered on 04/12/16 21:11 ; Admin Dose 80 MG; Start 04/11/16 at 21:00 Carvedilol (Coreg) 6.25 mg BID PO Last administered on 04/12/16 21:11; Admin Dose 6.25 MG; Start 04/12/16 at 09:00 Famotidine (Pepcid) 20 mg DAILY PO Last administered on 04/12/16 12:05; Admin Dose 20 MG; Start 04/12/16 at 12:00 Diagnostic Test (Pha) (Accucheck) 1 ea 02 XX Last administered on 04/13/16 02: 14; Admin Dose 1 EA; Start 04/13/16 at 02:00 Miscellaneous Information 1 ea NOTE XX ; Start 04/12/16 at 15:00 Glucose (Glutose) 15 gm Q15M PRN PO DECREASED GLUCOSE; Start 04/12/16 at 15:00 Glucose (Glutose) 22.5 gm Q15M PRN PO DECREASED GLUCOSE; Start 04/12/16 at 15:00 Dextrose (D50w Syringe) 25 ml Q15M PRN IV DECREASED GLUCOSE; Start 04/12/16 at 15:00 Dextrose (D50w Syringe) 50 ml Q15M PRN IV DECREASED GLUCOSE; Start 04/12/16 at 15:00 Glucagon (Glucagen) 1 mg Q15M PRN IM DECREASED GLUCOSE; Start 04/12/16 at 15:00 Glucose (Glutose) 15 gm Q15M PRN BUCCAL DECREASED GLUCOSE; Start 04/12/16 at 15: 00 Hydralazine HCl (Apresoline) 10 mg Q4H PRN IV SBP >160; Start 04/12/16 at 18:30 BRANDIE RAWLS Apr 13, 2016 09:13
[2016-04-13] MEDS ORDERED: morphine 2 MG INJ IV PRN (09:30)
--- NOTE | 2016-04-13 09:34 | OPR ---
Date/Time of Note Date/Time of Note DATE: 04/13/16 TIME: 09:16 Operative Report Free Text/Dictation Procedure Date: 04/13/2016 Procedures Performed: 1)Balloon angioplasty and stenting of the mid RCA (3 overlapping Promus drug eluting stents, 3.0 x 12, 3.0 x 16, 3.5 x 16) Pre-operative Diagnosis: post STEMI staged PCI Post-operative Diagnosis:same Indications: 75 yo M who initially presented with a STEMI and had PCI of his mid LAD. The pt is to have staged PCI of his RCA for improved revascularization Description of Procedure: After informed consent, the patient was brought to the cardiac catheterization lab. The procedure site was prepped and draped in usual manner. The patient was premedicated with versed 1mg and fentanyl 25 mcg. 2mL lidocaine was injected into the right wrist. Next using the posterior wall approach, the 6 angolan sheath was inserted into the right radial artery. A 6 angolan JR4 guide was advanced and engaged into the right coronary artery. After appropriate anticoagulation and antiplatelets were given, the PT 2 moderate angioplasty wire was advanced past the lesion. Next the 2.5 X 12 balloon could not be advanced into the lesion so a 2.0 x 12 balloon was used to dilate the lesion times 4 at a maximum of 14 jesus alberto. Then a 2.5 x 12 balloon was used to dilate the lesion times 5 at a maximum of 14 jesus alberto. As the long stent would not advance, a Mailman was used was a shlomo wire. The long stent again would not advance so a Promus 3.0 x 12 stent was advanced to the lesion and deployed at 12 jesus alberto after the Mailman was removed. Next the Mailman was again used and a Promus 3.0 x 16 stent was advanced to the lesion and deployed at 14 jesus alberto after the Mailman was removed. Next the Mailman was again used and a Promus 3.5 x 12 stent was advanced to the lesion and deployed at 14 jesus alberto after the Mailman was removed. Next the Mailman was again used and a NC 3.5 x 8 balloon was advanced and the stents were post dilated times 6 at a maximum of 18 jesus alberto after the Mailman was removed. Final angiography revealed STEFANIE 3 flow, no edge dissection, and appropriate stent expansion. Next all equipment was removed and hemostasis was achieved by TR band. Findings: Anatomy/Hemodynamics: RCA:mid long calcified 95%, distal 40-50% PDA:normal PLV:normal LVEDP: ~10 Contrast used:140 Fluoroscopy time:40 Medications used: Versed 1 Fentanyl 25 Radial cocktail: heparin 2000, NTG 200, verapamil 2.5 Angiomax bolus/drip plavix 300mg Equipment used: 6 angolan JR4 guide PT 2 moderate support and Mailman angioplasty wire 2 x 12 balloon, 2.5 x 12 balloon Promus 3.0 x 12 drug eluting stent (overlapping) Promus 3.0 x 16 drug eluting stent (overlapping) Promus 3.5 x 16 drug eluting stent (overlapping) 3.5 x 8 noncompliant balloon Assessment: Residual coronary disease after STEMI s/p staged PCI of RCA as above S/p STEMI with PCI of LAD Plan: -continue ASA, plavix, lipitor, coreg -outpt PCI of Cx/OM unless pt has symptoms BRANDIE RAWLS Apr 13, 2016 09:33
[2016-04-13] MEDS: ASPIRIN 81 MG TAB PO SCH (10:06)
[2016-04-13] MEDS: FAMOTIDINE 20 MG TAB PO SCH (10:06)
[2016-04-13] MEDS: INSULIN ASPART [NOVOLOG] 3 ML PEN SC SCH ×4 (10:23→21:00)
--- NOTE | 2016-04-13 11:40 | RADRPT ---
Vent Rate: 63 bpm RR Interval: 0 msec OK Interval: 198 msec QRS Duration: 88 msec QT Interval: 472 msec QTC Interval: 483 msec P-R-T [place]: 48 - -77 - 0 degrees Normal sinus rhythm Left axis deviation Anteroseptal infarct (known to be recent but not acute) Marked T wave abnormality, consider inferolateral ischemia Abnormal ECG Electronically Signed By: Sander Corral [id number]
--- NOTE | 2016-04-13 13:57 | PN ---
Date/Time of Note Date/Time of Note DATE: 04/13/16 TIME: 13:55 Assessment/Plan VTE Prophylaxis VTE Prophylaxis Intervention: other Lines/Catheters IV [facility] Peripheral IV Urinary Cath still in place: No Assessment/Plan Chief Complaint/Hosp Course ASSESSMENT AND PLAN: 75 M with STEMI 1. ST-elevation myocardial infarction - status post balloon angioplasty and stenting x2 (of the mid LAD and now RCA). - Continue cardiac meds, lipitor Follow up with cardiology recommendations. - follow up on cardiology recommendations - plan for possible further stenting on Lcx and RCA in 24 hrs per CV 2. DM -2 - A1c = 6.9 - ISS 3. high chol - statin 4. Prophylaxis. H2 flavia, SCDs, ASA + plavix. Critical care time spent with pt care today = 40 min. Problems: Subjective 24 Hr Interval Summary Free Text/Dictation Pt had second C with PCI placement to RCA this AM, no present cp. Exam/Review of Systems Vital Signs Vitals Vital Signs Date Time Temp Pulse Resp B/P Pulse Ox O2 Delivery O2 Flow Rate FiO2 04/13/16 13:25 71 13 123/64 99 04/13/16 13:10 Room Air 04/13/16 12:10 98.8 04/13/16 09:39 2.0 Intake and Output 04/12/16 04/12/16 04/13/16 15:00 23:00 07:00 Intake Total 240 ml 820 ml 0 ml Output Total 300 ml 750 ml 0 ml Balance -60 ml 70 ml 0 ml Exam GENERAL: No acute distress, alert, and oriented. HEENT: Normocephalic, atraumatic. LUNGS: Clear to auscultation. CARDIOVASCULAR: Regular rate and rhythm. ABDOMEN: Nondistended, nontender, soft. EXTREMITIES: No clubbing, cyanosis, or edema. Results Result Diagram: 04/13/16 0409 04/13/16 0409 Results 24 hrs Laboratory Tests Test 04/12/16 17:16 04/12/16 21:14 04/13/16 02:11 04/13/16 04:09 Bedside Glucose 199 224 H 153 Activated Partial Thromboplast Time 30.2 Anion Gap 12 Basophils # 0.0 Basophils % 0.1 Blood Morphology Comment Blood Urea Nitrogen 12 Calcium Level 8.4 Carbon Dioxide Level 26 Chloride Level 106 Cholesterol Level 126 Cholesterol/HDL Ratio 3.7 Creatinine 0.70 Eosinophils # 0.3 Eosinophils % 4.3 Glucose Level 147 HDL Cholesterol 34 Hematocrit 41.2 L Hemoglobin 13.8 L INR International Normalized Ratio 1.04 LDL Cholesterol, Calculated 75 Lymphocytes # 1.2 Lymphocytes % 15.4 Mean Corpuscular Hemoglobin 28.6 L Mean Corpuscular Hemoglobin Concent 33.5 Mean Corpuscular Volume 85.2 Mean Platelet Volume 10.0 Monocytes # 1.0 H Monocytes % 13.2 H Neutrophils # 5.1 Neutrophils % 67.0 Nucleated Red Blood Cells # 0.0 Nucleated Red Blood Cells % 0.0 Platelet Count 160 Potassium Level 3.9 Prothrombin Time 13.6 Prothrombin Time Ratio 1.1 Red Blood Count 4.83 Red Cell Distribution Width 13.3 Sodium Level 140 Triglycerides Level 84 White Blood Count 7.6 Test 04/13/16 09:43 04/13/16 11:37 Bedside Glucose 144 237 H Medications Medications Current Medications Acetaminophen (Tylenol Tab) 650 mg Q4H PRN PO NON-CARDIAC PAIN LEVEL (1-3); Start 04/11/16 at 18:30 Morphine Sulfate (morphine) 2 mg Q2H PRN IV FOR NON CARDIAC PAIN (4-10) Last administered on 04/12/16 00:51; Admin Dose 2 MG; Start 04/11/16 at 18:30 Ondansetron HCl (Zofran Inj) 4 mg Q4H PRN IV NAUSEA AND/OR VOMITING; Start 04/11 at 18:30 Aspirin (Aspirin) 81 mg DAILY PO Last administered on 04/13/16 10:06; Admin Dose 81 MG; Start 04/12/16 at 09:00 Clopidogrel Bisulfate (plaVIX) 75 mg DAILY PO Last administered on 04/12/16 08: 06; Admin Dose 75 MG; Start 04/12/16 at 09:00 Atorvastatin Calcium (Lipitor) 80 mg HS PO Last administered on 04/12/16 21:11 ; Admin Dose 80 MG; Start 04/11/16 at 21:00 Carvedilol (Coreg) 6.25 mg BID PO Last administered on 04/13/16 10:08; Admin Dose 6.25 MG; Start 04/12/16 at 09:00 Famotidine (Pepcid) 20 mg DAILY PO Last administered on 04/13/16 10:06; Admin Dose 20 MG; Start 04/12/16 at 12:00 Diagnostic Test (Pha) (Accucheck) 1 ea 02 XX Last administered on 04/13/16t 02: 14; Admin Dose 1 EA; Start 04/13/16 at 02:00 Miscellaneous Information 1 ea NOTE XX ; Start 04/12/16 at 15:00 Glucose (Glutose) 15 gm Q15M PRN PO DECREASED GLUCOSE; Start 04/12/16 at 15:00 Glucose (Glutose) 22.5 gm Q15M PRN PO DECREASED GLUCOSE; Start 04/12/16 at 15:00 Dextrose (D50w Syringe) 25 ml Q15M PRN IV DECREASED GLUCOSE; Start 04/12/16 at 15:00 Dextrose (D50w Syringe) 50 ml Q15M PRN IV DECREASED GLUCOSE; Start 04/12/16 at 15:00 Glucagon (Glucagen) 1 mg Q15M PRN IM DECREASED GLUCOSE; Start 04/12/16 at 15:00 Glucose (Glutose) 15 gm Q15M PRN BUCCAL DECREASED GLUCOSE; Start 04/12/16 at 15: 00 Hydralazine HCl (Apresoline) 10 mg Q4H PRN IV SBP >160; Start 04/12/16 at 18:30 KEISHA VILLAREAL Apr 13, 2016 13:57
[2016-04-13] MEDS: ATORVASTATIN 80 MG TAB PO SCH (21:10)
[2016-04-14] VITALS (9 sets, daily range): BP systolic 130–140; BP diastolic 62–71; PULSE 57–74; RESP 18–20
[2016-04-14] MEDS: ACCUCHECK XX SCH (02:00)
[2016-04-14] MEDS: INSULIN ASPART [NOVOLOG] 3 ML PEN SC SCH ×2 (08:00→12:33)
[2016-04-14] MEDS ORDERED: LISINOPRIL 5 MG TAB PO SCH (09:00)
[2016-04-14] MEDS: ASPIRIN 81 MG TAB PO SCH (09:22)
[2016-04-14] MEDS: CLOPIDOGREL 75 MG TAB PO SCH (09:22)
[2016-04-14] MEDS: FAMOTIDINE 20 MG TAB PO SCH (09:23)
--- NOTE | 2016-04-14 09:34 | CONS ---
Date/Time of Note Date/Time of Note DATE: 04/14/16 TIME: 09:32 Assessment/Plan Assessment/Plan Chief Complaint/Hosp Course Anterior STEMI 04/11/16: s/p PCI of LAD. S/p PCI of RCA 04/13/16. Still has residual Cx/OM disease but will be done as outpt. Ischemic Cardiomyopathy: EF 40-45%. Compensated. -if ambulates without symptoms, can be discharged with follow up with me next week. Please d/c on below meds at current doses -ASA 81mg -plavix 75mg -coreg -lipitor -lisinopril Problems: Consultation Date/Type/Reason Admit Date/Time Apr 11, 2016 at 19:30 Initial Consult Date 04/11/16 Type of Consultation: Cardiology Referring Provider: PATRICK AGUILLON DO 24 HR Interval Summary Free Text/Dictation No o/n events. No chest pain. Feels well. Exam/Review of Systems Vital Signs Vitals Vital Signs Date Time Temp Pulse Resp B/P Pulse Ox O2 Delivery O2 Flow Rate FiO2 04/14/16 08:21 63 04/14/16 08:11 99.6 20 130/70 98 04/14/16 04:00 Room Air 3.0 Intake and Output 04/13/16 04/13/16 04/14/16 15:00 23:00 07:00 Intake Total 50 ml 400 ml Output Total 500 ml 200 ml Balance -450 ml -200 ml 400 ml Exam Constitutional: alert, oriented Psych: no complaints Head: atraumatic, normocephalic Neck: No jvd Respiratory: clear to auscultation, No crackles/rales Cardiovascular: regular rate and rhythm Gastrointestinal: soft, No non-tender Extremities: normal pulses Neurological: nl mental status, nl speech Results Result Diagram: 04/13/16 0409 04/13/16 0409 Results 24 hrs Laboratory Tests Test 04/13/16 09:43 04/13/16 11:37 04/13/16 17:40 04/13/16 21:09 Bedside Glucose 144 237 H 163 173 Test 04/14/16 08:26 Bedside Glucose 124 Medications Medications Current Medications Acetaminophen (Tylenol Tab) 650 mg Q4H PRN PO NON-CARDIAC PAIN LEVEL (1-3); Start 04/11/16 at 18:30 Morphine Sulfate (morphine) 2 mg Q2H PRN IV FOR NON CARDIAC PAIN (4-10) Last administered on 04/12/16 00:51; Admin Dose 2 MG; Start 04/11/16 at 18:30 Ondansetron HCl (Zofran Inj) 4 mg Q4H PRN IV NAUSEA AND/OR VOMITING; Start 04/11 at 18:30 Aspirin (Aspirin) 81 mg DAILY PO Last administered on 04/14/16 09:22; Admin Dose 81 MG; Start 04/12/16 at 09:00 Clopidogrel Bisulfate (plaVIX) 75 mg DAILY PO Last administered on 04/14/16 09: 22; Admin Dose 75 MG; Start 04/12/16 at 09:00 Atorvastatin Calcium (Lipitor) 80 mg HS PO Last administered on 04/13/16 21:10 ; Admin Dose 80 MG; Start 04/11/16 at 21:00 Carvedilol (Coreg) 6.25 mg BID PO Last administered on 04/14/16 09:22; Admin Dose 6.25 MG; Start 04/12/16 at 09:00 Famotidine (Pepcid) 20 mg DAILY PO Last administered on 04/14/16 09:23; Admin Dose 20 MG; Start 04/12/16 at 12:00 Diagnostic Test (Pha) (Accucheck) 1 ea 02 XX Last administered on 04/13/16 02: 14; Admin Dose 1 EA; Start 04/13/16 at 02:00 Miscellaneous Information 1 ea NOTE XX ; Start 04/12/16 at 15:00 Glucose (Glutose) 15 gm Q15M PRN PO DECREASED GLUCOSE; Start 04/12/16 at 15:00 Glucose (Glutose) 22.5 gm Q15M PRN PO DECREASED GLUCOSE; Start 04/12/16 at 15:00 Dextrose (D50w Syringe) 25 ml Q15M PRN IV DECREASED GLUCOSE; Start 04/12/16 at 15:00 Dextrose (D50w Syringe) 50 ml Q15M PRN IV DECREASED GLUCOSE; Start 04/12/16 at 15:00 Glucagon (Glucagen) 1 mg Q15M PRN IM DECREASED GLUCOSE; Start 04/12/16 at 15:00 Glucose (Glutose) 15 gm Q15M PRN BUCCAL DECREASED GLUCOSE; Start 04/12/16 at 15: 00 Hydralazine HCl (Apresoline) 10 mg Q4H PRN IV SBP >160; Start 04/12/16 at 18:30 Lisinopril (Zestril) 5 mg DAILY PO Last administered on 04/14/16t 09:23; Admin Dose 5 MG; Start 04/14/16 at 09:00 BRANDIE RAWLS Apr 14, 2016 09:34
--- NOTE | 2016-04-14 12:17 | PDOCDIS ---
Discharge Instructions CONDITION Patient Condition: Stable HOME CARE INSTRUCTIONS: Special Diet: LOW FAT/CHOLES 2GM NA ACTIVITY: Activity Restrictions: Slowly Increase Activity FOLLOW UP/APPOINTMENTS Appointments Please take your medications as prescribed, and see your doctor in the clinic in 1 week. KEISHA VILLAREAL Apr 14, 2016 12:16
[2016-04-14] MEDS ORDERED: CLOP75TA28 PO (12:18)
[2016-04-14] MEDS ORDERED: ATOR80TA75 PO (12:18)
[2016-04-14] MEDS ORDERED: ASP81 PO (12:18)
[2016-04-14] MEDS ORDERED: CARV6.2579 PO (12:18)
[2016-04-14] MEDS ORDERED: LISI-313 PO (12:18)
--- NOTE | 2016-04-14 13:02 | DS ---
DATE OF ADMISSION: 04/11/2016 DATE OF DISCHARGE: 04/14/2016 This is a 75-year-old male, originally admitted on 04/12/2016 and being discharged home on 7. The patient came in with chest pain symptoms. He was found to have a ST elevation MS. He was t aken to the catheterization lab and had significant occlusion in the mid LAD, as well as the RCA and circumflex arteries. He had 2 separate left heart catheterizations. The first included angioplast y and stenting of his mid LAD and 24 hours later he had a second heart catheterization and had stent ing of the RCA. The patient tolerated the procedure well. His chest pain symptoms and vital signs are stable. He was able to ambulate and tolerate a p.o. diet, and after getting clearance from the cardiology team the patient will be discharged home today in improved condition. He will be sent wi th the following medications: 1. Aspirin 81 mg daily. 2. Atorvastatin 80 mg at bedtime. 3. Coreg 6.25 mg b.i.d. 4. Plavix 75 mg daily. 5. Lisinopril 5 mg daily. Continue to follow up with the cardiology team, as he will need a third left heart catheterization p rocedure for, most likely, angioplasty and possible stenting of the circumflex artery, so we have gi rae him information to follow up with the cardiology team for that. FINAL DIAGNOSES: 1. Chest pain secondary to ST elevation myocardial infarction, status post balloon angioplasty and stenting x2, with significant coronary artery disease. 2. Type 2 diabetes. A1c found at 6.9, now on medical management. 3. High cholesterol, on a statin. Time spent discharging this patient was 40 minutes. Dictated By: KEISHA QUINTANILLA Conf#: [id number] DID#: [id number]
[2016-04-15] MEDS ORDERED: BIVALIRUDIN 250MG /NS 50 ML 50 ML IVPB ONE (05:53)
== END 2016-04-14 15:56 | disposition home or self-care (01) | DRG 246 ==
LOC: E/R 16:06 → SDS 17:01 → CCL 17:01 → ICU 18:30 → CCL 19:30 → MS4 04-13 17:05
PROVIDERS: ADMIT Internal Medicine Interventional Cardiology; ATTEND Hospitalist
PROC: 027034Z Dilation of Coronary Artery, One Artery with Drug-eluting Intraluminal Device, Percutaneous Approach (ICD-10-PCS; principal; 2016-04-11)
PROC: 4A023N7 Measurement of Cardiac Sampling and Pressure, Left Heart, Percutaneous Approach (ICD-10-PCS; 2016-04-11)
PROC: B2101ZZ Fluoroscopy of Single Coronary Artery using Low Osmolar Contrast (ICD-10-PCS; 2016-04-11)
PROC: 027036Z Dilation of Coronary Artery, One Artery with Three Drug-eluting Intraluminal Devices, Percutaneous Approach (ICD-10-PCS; 2016-04-13)
DX: I21.09 ST elevation (STEMI) myocardial infarction involving other coronary artery of anterior wall (principal); E11.9 Type 2 diabetes mellitus without complications; I10 Essential (primary) hypertension; E78.00 Pure hypercholesterolemia, unspecified
CPT/HCPCS: 36415; 71010; 80048; 80061; 82550; 82553; 82962; 83036; 84484; 85025; 85610; 85730; 87081; 93005; 93306; 93454; 93458; 96374; 96375; C1725; C1769; C1874; C1887; C1894; C9600; C9606; J0461; J0583; J1644; J1815; J2250; J2270; J2405; J3010; J7040; Q9967

== ENCOUNTER 2017-04-15 17:06 | Emergency (ER) | END 2017-04-16 01:46 | disposition home or self-care (01) ==

== ENCOUNTER 2018-03-06 02:00 | Inpatient (IN) | END 2018-03-07 10:50 | disposition home or self-care (01) | DRG 395 ==